=== PATIENT | male | born 1990 | race Caucasian/White ===

== ENCOUNTER 2024-07-30 08:15 | Emergency (ER) | payer OTHER, SELFPAY ==
--- NOTE | 2024-07-30 08:30 | DI.RAD_ITS ---
Exam(s) XR FOOT LT COMPLETE EXAM: XR FOOT LT COMPLETE CLINICAL HISTORY: pain base of big toe. TECHNIQUE: 2D digital imaging was performed of the left foot. Images were obtained. AP, oblique a nd lateral views were obtained. COMPARISON: No exams were available for comparison FINDINGS: BONES: No acute fracture is present. No bony destructive lesion is seen. JOINTS: No dislocation present. SOFT TISSUE: Normal. IMPRESSION: Unremarkable radiographs of the left foot. DATA REPOSITORY: RADIATION DOSE DELIVERED:
[2024-07-30 08:33] VITALS: BP 212/117; PULSE 80; RESP 16; TEMP 36.1; O2SAT 97
--- NOTE | 2024-07-30 08:45 | ED.GENADUL_ITS ---
Discharge Plan Disposition Patient Disposition: Home Condition: Stable Discharge Details Clinical Impression: Foot pain, left Primary Care Provider: None,None ED Provider: Feliciano Bliss Home Meds and New Rx's Prescriptions: New prednisone 20 mg tablet See Rx Instructions .ROUTE .COMPLEX Qty: 18 0RF Rx Instructions: Take 60 mg daily for 3 days, then 40 mg daily for 3 days, then 20 mg daily for 3 days. Discharge Instructions Additional Instructions: You should follow-up with the primary care provider for management of your blood pressure if it continues to be high you may need to be put on a medication. You can take 1000 mg of acetaminophen and 600 mg of ibuprofen every 6 hours as needed. If you develop any high fevers or severe worsening pain return to the emergency department for reevaluation. HPI General Mode of arrival: wheelchair . Date/Time Provider Initiated Documentation: 07/30/24 08:20 . Limitations to Documentation: no limitations . Information obtained by: patient . History of Present Illness 33 year old M presents to the emergency department with the chief complaint of left big toe pain, described as moderate, Quality is described as aching, Patient started experiencing this day(s) (1) and it has been constant. No relieving factors improve symptom(s), No exacerbating factors reported . Patient notes no other symptoms.. Patient did receive the following treatments prior to arrival, NSAID Related Data Home Medications ?Medication ?Instructions ?Recorded ?Confirmed prednisone 20 mg tablet See Rx Instructions .Route 07/30/24 .COMPLEX #18 tabs Previous Rx's ?Medication ?Instructions ?Recorded prednisone 20 mg tablet See Rx Instructions .Route 07/30/24 .COMPLEX #18 tabs Allergies Allergy/AdvReac Type Severity Reaction Status Date / Time No Known Allergies Allergy Unverified 07/30/24 08:47 General Stated Complaint: Orthopedic JD: 3 Review of Systems All systems reviewed & are unremarkable except as noted in HPI and below Constitutional Constitutional: Denies chills, Denies fever(s) and Denies weakness Cardiovascular Cardiovascular: Denies chest pain and Denies dyspnea Respiratory Respiratory: Denies cough and Denies dyspnea Gastrointestinal Gastrointestinal: Denies abdominal pain, Denies nausea and Denies vomiting Musculoskeletal Musculoskeletal: Reports arthralgias Neurologic Neurologic: Denies weakness Exam Const General: no acute distress Orientation: alert HENMT Head: normal to inspection Ears: external ears normal General nose exam: external nose normal Mouth: moist mucous membranes Eyes General: appearance normal, both eyes and all related structures Neck Neck: normal visual inspection Resp Effort & Inspection: normal respiratory effort and able to speak in complete sentences Cardio Rate: regular rate Skin General skin exam: no rashes or lesions noted Neuro General: patient alert and patient oriented x3 Extrem General: full ROM and capillary refill normal Psych Mental Status: mental status grossly normal Course Vital Signs Vital signs: Vital Signs Temperature 36.1 C L 07/30/24 08:33 Pulse 80 07/30/24 08:33 Respiratory Rate 16 07/30/24 08:33 Blood Pressure 212/117 H 07/30/24 08:33 Pulse Oximetry 97 07/30/24 08:33 Temperature 36.1 C L 07/30/24 08:33 Temperature Source Temporal Artery Scan 07/30/24 08:33 Pulse 80 07/30/24 08:33 Respiratory Rate 16 07/30/24 08:33 Blood Pressure 212/117 H 07/30/24 08:33 Blood Pressure Position Sitting 07/30/24 08:33 Pulse Oximetry 97 07/30/24 08:33 Oxygen Delivery Method Room Air 07/30/24 08:33 Oxygen Flow Rate 0 07/30/24 08:33 Pain Level 9 07/30/24 08:33 Comment Aleve at 0745 07/30/24 08:33 Medical Decision Making 33-year-old male comes in with nontraumatic left foot pain. He denies any fevers. He states that his proximal left big toe at the MTP joint is swollen and tender. He has pain with ambulation. He denies any trauma. He is well- appearing on exam. He has mild erythema without warmth of the left proximal big toe. He is able to fully range the toe, there is no tenderness or swelling elsewhere. I suspect gout, will obtain x-rays to exclude fracture. Will treat his symptoms with prednisone. He has no fevers and has no open wound so I doubt entities such as septic joint and he denies any IV drug use X-ray my read shows no acute findings. Suspect gout, he is stable. Will place him on a steroid taper and advised to follow-up with either PCP or express care, return precautions given Differential Diagnosis Differential Diagnosis: Gout, pseudogout Quality:SDOH Health Related Social Needs: No Data to Display PFSH All Active Problems (Updated 07/30/24 @ 09:15 by Feliciano Bliss MD) Foot pain, left (Acute) Social History Smoking/Tobacco Use Status: Never Smoking risk assessment performed?: Yes Alcohol Intake: current Alcohol Intake frequency: holidays/special occasions only Alcohol type: beer Drug use: Never Substance use type: does not use Housing: house Do you feel safe at home: Yes Do you feel safe in your relationship?: Yes
[2024-07-30] MEDS: predniSONE 20 MG TAB 60 MG PO (08:46)
[2024-07-30 09:47] VITALS: BP 160/94; PULSE 65; RESP 16; O2SAT 99
== END 2024-07-30 10:00 | disposition home or self-care (01) ==
LOC: ER 09:38
PROVIDERS: Emergency Provider Emergency Medicine
DX: M79.675 Pain in left toe(s) (principal)
CPT/HCPCS: 99283; 73630; J7512